=== PATIENT | female | born 1990 | race Caucasian/White ===

== ENCOUNTER → 2019-10-03 | Outpatient (CLI) | payer BC | LOC: WSo 11:42 | PROVIDERS: ATTEND Obstetrics & Gynecology | DX: Z31.82 Encounter for Rh incompatibility status (principal) | CPT/HCPCS: 96372 ==

== ENCOUNTER → 2019-11-20 | Outpatient (CLI) | payer BC ==
[2019-11-20 09:25] LABS: BASOPHILS % (AUTO) 0 % (0-10); EOSINOPHILS # (AUTO) 0.1 10^3/uL (0.0-0.3); EOSINOPHILS % (AUTO) 1 % (0-10); HEMATOCRIT 31 % (35-52); HEMOGLOBIN 10.4 G/DL (11.5-16.0); LYMPHOCYTES # (AUTO) 3.2 X 10^3 (1.0-4.0); LYMPHOCYTES % (AUTO) 23 % (12-44); MEAN CORPUSCULAR HEMOGLOBIN 29 PG (25-34); MEAN CORPUSCULAR HGB CONC 33 G/DL (32-36); MEAN CORPUSCULAR VOLUME 88 FL (80-99); MEAN PLATELET VOLUME 10.2 FL (7.4-10.4); MONOCYTES # (AUTO) 1.4 X 10^3 (0.0-1.0); MONOCYTES % (AUTO) 10 % (0-12); NEUTROPHILS # (AUTO) 9.2 X 10^3 (1.8-7.8); NEUTROPHILS % (AUTO) 66 % (42-75); PLATELET COUNT 363 10^3/uL (130-400); RED CELL DISTRIBUTION WIDTH 14.2 % (10.0-14.5); WHITE BLOOD COUNT 13.8 10^3/uL (4.3-11.0)
[2019-11-20 09:42] LABS: ALBUMIN 3.3 GM/DL (3.2-4.5); CHLORIDE 108 MMOL/L (98-107); POTASSIUM 3.9 MMOL/L (3.6-5.0); SODIUM 137 MMOL/L (135-145)
[2019-11-20 09:43] LABS: CALCIUM 8.4 MG/DL (8.5-10.1)
[2019-11-20 09:44] LABS: GLUCOSE 76 MG/DL (70-105)
[2019-11-20 09:45] LABS: CARBON DIOXIDE 20 MMOL/L (21-32)
[2019-11-20 09:46] LABS: BILIRUBIN,TOTAL 0.3 MG/DL (0.1-1.0)
[2019-11-20 09:48] LABS: ALKALINE PHOSPHATASE 124 U/L (40-136); CREATININE SERUM 0.67 MG/DL (0.60-1.30); GFR ESTIMATED > 60
[2019-11-20 09:49] LABS: BUN/CREATININE RATIO 13
[2019-11-20 09:51] LABS: ALANINE AMINOTRANSFERASE 11 U/L (0-55)
== END ==
LOC: LABNPT 09:14
PROVIDERS: ATTEND Obstetrics & Gynecology
DX: Z01.89 Encounter for other specified special examinations (principal)
CPT/HCPCS: 80053; 82570; 83615; 84156; 84550; 85025

== ENCOUNTER 2019-12-04 11:19 | Inpatient (IN) | payer BC ==
[2019-12-04] VITALS (38 sets, daily range): BP systolic 125–169; BP diastolic 59–104
[~2019-12-04] VITALS: Ht 162 cm; Wt 91.4 kg
--- NOTE | 2019-12-04 11:15 | NUR ---
LEE CHÁVEZ presented to unit via ambulatory from ED, accompanied by for induction of labor for induced hypertension.. LEE CHÁVEZ weighed, gowned, voided, and to bed. EFHM and TOCO applied, VS taken. LEE CHÁVEZ oriented to bed controls, call light, TV, heat, and A/C controls.
[2019-12-04] MEDS ORDERED: OXYTOCIN PRE-MIX DRIP 500 ML IV SCH (11:43)
--- NOTE | 2019-12-04 11:51 | History & Physical ---
History and Physical Date Seen by Provider: Dec 04, 2019 Time Seen by Provider: 11:49 This patient is a 29-year-old 1 white female seen in my clinic on the 150s over 102. She is gained 6 pounds last 2 weeks. She then was closely throughout her for elevated blood pressures. She is admitted now with PIH and GBS cultures negative. Patient. Allergies are none Medications are vitamins Medical social and surgical histories are per the antepartum record HEENT exam is normal Neck is supple no lymphadenopathy no thyromegaly Abdomen is gravid soft nontender nondistended Extremities show no clubbing or cyanosis. There is no Homans sign. Pelvic exam shows a cervix closed and then approximately 50 percent. Vertex presentation was a -1-2 station Lab work is pending Assessment and plan term at 37 weeks gestation with severe PIH. Lab work is pending to evaluate for preeclampsia. Plan is for labor induction with anticipation for vaginal delivery. Patient does understand there is increased risk for likelihood for delivery with her elevated blood pressures. 37 weeks with severe PIH Allergies and Home Medications Allergies Coded Allergies: No Known Drug Allergies (Unverified , 12/04/19) Patient Home Medication List Home Medication List Reviewed: Yes RADHA NEWTON MD Dec 04, 2019 11:51
[2019-12-04] MEDS ORDERED: D5 LR IV SOLUTION 1,000 ML IV ONE (11:58)
[2019-12-04 12:15] LABS: BASOPHILS % (AUTO) 0 % (0-10); EOSINOPHILS % (AUTO) 0 % (0-10); HEMATOCRIT 29 % (35-52); HEMOGLOBIN 9.7 G/DL (11.5-16.0); LYMPHOCYTES # (AUTO) 1.8 X 10^3 (1.0-4.0); LYMPHOCYTES % (AUTO) 16 % (12-44); MEAN CORPUSCULAR HEMOGLOBIN 29 PG (25-34); MEAN CORPUSCULAR HGB CONC 33 G/DL (32-36); MEAN CORPUSCULAR VOLUME 87 FL (80-99); MEAN PLATELET VOLUME 10.3 FL (7.4-10.4); MONOCYTES % (AUTO) 9 % (0-12); NEUTROPHILS # (AUTO) 8.6 X 10^3 (1.8-7.8); NEUTROPHILS % (AUTO) 75 % (42-75); PLATELET COUNT 341 10^3/uL (130-400); WHITE BLOOD COUNT 11.5 10^3/uL (4.3-11.0)
[2019-12-04 12:36] LABS: URINE CREATININE FOR RATIO 25 MG/DL (30-125); URINE PROTEIN FOR RATIO ONLY < 6 MG/DL (6-12)
[2019-12-04] MEDS: D5 LR IV SOLUTION 1,000 ML IV SCH (12:37)
[2019-12-04 12:38] LABS: ALANINE AMINOTRANSFERASE 13 U/L (0-55); ALBUMIN 3.2 GM/DL (3.2-4.5); ALKALINE PHOSPHATASE 137 U/L (40-136); BILIRUBIN,TOTAL 0.3 MG/DL (0.1-1.0); BUN/CREATININE RATIO 10; CALCIUM 8.8 MG/DL (8.5-10.1); CARBON DIOXIDE 20 MMOL/L (21-32); CHLORIDE 109 MMOL/L (98-107); CREATININE SERUM 0.63 MG/DL (0.60-1.30); GFR ESTIMATED > 60; GLUCOSE 77 MG/DL (70-105); SODIUM 137 MMOL/L (135-145); TOTAL PROTEIN 6.3 GM/DL (6.4-8.2); URIC ACID 3.8 MG/DL (2.6-7.2)
--- OUTSIDE RECORDS SUMMARY | 2019-12-04 13:01 | XMS REPORT | Continuity of Care Document ---
Author Organization Unknown Address Unknown Phone Unavailable Allergies There is no data. Medications There is no data. Problems Date Dx Coded Attending Type Code Diagnosis Diagnosed By 10/04/2019 RADHA NEWTON MD, Ot Z31.82 ENCOUNTER FOR RH INCOMPATIBILITY STATUS 10/06/2019 RADHA NEWTON MD, Ot Z31.82 ENCOUNTER FOR RH INCOMPATIBILITY STATUS 10/06/2019 RADHA NEWTON MD, Ot Z31.82 ENCOUNTER FOR RH INCOMPATIBILITY STATUS 10/06/2019 RADHA NEWTON MD, Ot Z31.82 ENCOUNTER FOR RH INCOMPATIBILITY STATUS 10/19/2019 RADHA NEWTON MD, Ot Z31.82 ENCOUNTER FOR RH INCOMPATIBILITY STATUS 11/23/2019 RADHA NEWTON MD, Ot Z01.89 ENCOUNTER FOR OTHER SPECIFIED SPECIAL EX 11/27/2019 RADHA NEWTON MD, Ot Z01.89 ENCOUNTER FOR OTHER SPECIFIED SPECIAL EX Procedures There is no data. Results Test Result Range RH IMMUNE GLOBULIN RHOPHYLAC - 10/03/19 12:19 RH IMMUNE GLOBULIN RHOPHYLAC PRSMD TRFSD 10/03/19 1236 NRG Rh immune globulin screen - 10/03/19 12: 19 Rh immune globulin screen 1 300ug NRG Rh immune globulin screen 05/01/21 NRG Lot number - 10/03/19 12:19 Lot number [id number] Complete blood count (CBC) with automate d white blood cell (WBC) differential - 11/20/19 09:00 Blood leukocytes automated count (number/volume) 13.8 10*3/uL 4.3-11.0 Blood erythrocytes automated count (number/volume) 3.56 10*6/uL 4.35-5.85 Venous blood hemoglobin measurement (mass/volume) 10.4 g/dL 11.5-16.0 Blood hematocrit (volume fraction) 31 % 35-52 Automated erythrocyte mean corpuscular volume 88 [ foz_us] 80-99 Automated erythrocyte mean corpuscular h emoglobin (mass per erythrocyte) 29 pg 25-34 Automated erythrocyte mean corpuscular h emoglobin concentration measurement (mass/volume) 33 g/dL 32-36 Automated erythrocyte distribution width ratio 14. 2 % 10.0- 14.5 Automated blood platelet count (count/volume) 363 10*3/uL 130-400 Automated blood platelet mean volume measurement 10.2 [foz_us] 7.4-10.4 Automated blood neutrophils/100 leukocytes 66 % 42-75 Automated blood lymphocytes/100 leukocytes 23 % 12-44 Blood monocytes/100 leukocytes 10 % 0-12 Automated blood eosinophils/100 leukocytes 1 % 0-10 Automated blood basophils/100 leukocytes 0 % 0-10 Blood neutrophils automated count (number/volume) 9.2 10*3 1.8-7.8 Blood lymphocytes automated count (number/volume) 3.2 10*3 1.0-4.0 Blood monocytes automated count (number/volume) 1. 4 10*3 0.0-1.0 Automated eosinophil count 0.1 10*3/uL 0 .0-0.3 Automated blood basophil count (count/volume) 0.0 10*3/uL 0.0-0.1 Comprehensive metabolic panel - 11/20/19 09:00 Serum or plasma sodium measurement (moles/volume) 137 mmol/L 135-145 Serum or plasma potassium measurement (moles/volume) 3.9 mmol/L 3.6-5.0 Serum or plasma chloride measurement (moles/volume) 108 mmol/L 98-107 Carbon dioxide 20 mmol/L 21-32 Serum or plasma anion gap determination (moles/volume) 9 mmol/L 5-14 Serum or plasma urea nitrogen measurement (mass/volume ) 9 mg/dL 7-18 Serum or plasma creatinine measurement (mass/volume) 0.67 mg/dL 0.60-1.30 Serum or plasma urea nitrogen/creatinine mass ratio 13 NRG Serum or plasma creatinine measurement w ith calculation of estimated glomerular filtration rate > NRG Serum or plasma glucose measurement (mass/volume) 76 mg/dL 70-105 Serum or plasma calcium measurement (mass/volume) 8.4 mg/dL 8.5-10.1 Serum or plasma total bilirubin measurement (mass/volu me) 0.3 mg/dL 0.1-1.0 Serum or plasma alkaline phosphatase leon surement (enzymatic activity/volume) 124 U/L 40-136 Serum or plasma aspartate aminotransfera se measurement (enzymatic activity/volume) 14 U/L 5-34 Serum or plasma alanine aminotransferase measurement (enzymatic activity/volume) 11 U/L 0-55 Serum or plasma protein measurement (mass/volume) 6.0 g/dL 6.4-8.2 Serum or plasma albumin measurement (mass/volume) 3.3 g/dL 3.2-4.5 CALCIUM CORRECTED 9.0 mg/dL 8.5-10.1 Urine protein/creatinine mass ratio - 09:00 Urine protein measurement (mass/volume) 13 mg/dL 6-12 Urine creatinine measurement (mass/volume) 163 mg/ dL 30-125 Urine protein/creatinine mass ratio 0.08 NRG Serum or plasma uric acid measurement (m ass/volume) - 11/20/19 09:00 Serum or plasma uric acid measurement (mass/volume) 4.0 mg/dL 2.6-7.2 Serum ragweed IgE antibody assay - 11/19 09:00 Serum ragweed IgE antibody assay 188 U/L 125-220 Urine protein/creatinine mass ratio - 11:30 Urine protein measurement (mass/volume) < mg/dL 6-12 Urine creatinine measurement (mass/volume) 25 mg/d L 30-125 Urine protein/creatinine mass ratio TNP NRG Complete blood count (CBC) with automate d white blood cell (WBC) differential - 12/04/19 12:10 Blood leukocytes automated count (number/volume) 11.5 10*3/uL 4.3-11.0 Blood erythrocytes automated count (number/volume) 3.34 10*6/uL 4.35-5.85 Venous blood hemoglobin measurement (mass/volume) 9.7 g/dL 11.5-16.0 Blood hematocrit (volume fraction) 29 % 35-52 Automated erythrocyte mean corpuscular volume 87 [ foz_us] 80-99 Automated erythrocyte mean corpuscular h emoglobin (mass per erythrocyte) 29 pg 25-34 Automated erythrocyte mean corpuscular h emoglobin concentration measurement (mass/volume) 33 g/dL 32-36 Automated erythrocyte distribution width ratio 14. 0 % 10.0- 14.5 Automated blood platelet count (count/volume) 341 10*3/uL 130-400 Automated blood platelet mean volume measurement 10.3 [foz_us] 7.4-10.4 Automated blood neutrophils/100 leukocytes 75 % 42-75 Automated blood lymphocytes/100 leukocytes 16 % 12-44 Blood monocytes/100 leukocytes 9 % 0-12 Automated blood eosinophils/100 leukocytes 0 % 0-10 Automated blood basophils/100 leukocytes 0 % 0-10 Blood neutrophils automated count (number/volume) 8.6 10*3 1.8-7.8 Blood lymphocytes automated count (number/volume) 1.8 10*3 1.0-4.0 Blood monocytes automated count (number/volume) 1. 0 10*3 0.0-1.0 Automated eosinophil count 0.0 10*3/uL 0 .0-0.3 Automated blood basophil count (count/volume) 0.0 10*3/uL 0.0-0.1 Comprehensive metabolic panel - 12/04/19 12:10 Serum or plasma sodium measurement (moles/volume) 137 mmol/L 135-145 Serum or plasma potassium measurement (moles/volume) 4.0 mmol/L 3.6-5.0 Serum or plasma chloride measurement (moles/volume) 109 mmol/L 98-107 Carbon dioxide 20 mmol/L 21-32 Serum or plasma anion gap determination (moles/volume) 8 mmol/L 5-14 Serum or plasma urea nitrogen measurement (mass/volume ) 6 mg/dL 7-18 Serum or plasma creatinine measurement (mass/volume) 0.63 mg/dL 0.60-1.30 Serum or plasma urea nitrogen/creatinine mass ratio 10 NRG Serum or plasma creatinine measurement w ith calculation of estimated glomerular filtration rate > NRG Serum or plasma glucose measurement (mass/volume) 77 mg/dL 70-105 Serum or plasma calcium measurement (mass/volume) 8.8 mg/dL 8.5-10.1 Serum or plasma total bilirubin measurement (mass/volu me) 0.3 mg/dL 0.1-1.0 Serum or plasma alkaline phosphatase leon surement (enzymatic activity/volume) 137 U/L 40-136 Serum or plasma aspartate aminotransfera se measurement (enzymatic activity/volume) 20 U/L 5-34 Serum or plasma alanine aminotransferase measurement (enzymatic activity/volume) 13 U/L 0-55 Serum or plasma protein measurement (mass/volume) 6.3 g/dL 6.4-8.2 Serum or plasma albumin measurement (mass/volume) 3.2 g/dL 3.2-4.5 CALCIUM CORRECTED 9.4 mg/dL 8.5-10.1 Serum or plasma uric acid measurement (m ass/volume) - 12/04/19 12:10 Serum or plasma uric acid measurement (mass/volume) 3.8 mg/dL 2.6-7.2 Serum ragweed IgE antibody assay - 12/03 12:10 Serum ragweed IgE antibody assay 196 U/L 125-220 Blood type T Indirect antibody screen pa karrie - 12/04/19 12:10 WRISTBAND NUMBER [id number] NRG ABO+Rh group ON NRG Blood group antibody screen NEGATIVE NR G Encounters ACCT No. Visit Date/Time Discharge Status Pt. Type Provider Facility Loc./Unit Complaint [id number] 11/20/2019 09:14:00 020 23:59:59 CLS Outpatient RADHA NEWTON MD [facility] LABNPT [id number] 10/03/2019 11:42:00 020 23:59:59 CLS Outpatient RADHA NEWTON MD [facility] WSo RH NEG [id number] 12/04/2019 11:45:[address] Inpatient RADHA NEWTON MD [facility] LDRP
--- NOTE | 2019-12-04 19:57 | Progress Note ---
Standard Progress Note Progress Notes/Assess & Plan Date Seen by a Provider: Dec 04, 2019 Time Seen by a Provider: 19:56 Progress/Assessment & Plan Patient without complaint. She does indicate she is beginning to feel contractions but the discomfort is tolerable. Experienced spontaneous rupture membranes about 1700 today with clear fluid. Her blood pressures have been somewhat labile periodically being in the 160s over high 90s and 100s. Patient understands that if she repeats blood pressures in that range with likely would proceed with delivery. Plan at this point is to halt the Pitocin which is currently at 40 mU/m allow her to rest for 6 hours or so and then resumed Pitocin in hopes of more effective labor. Continue close attention to blood pressure and to status. RADHA NEWTON MD Dec 04, 2019 19:57
[2019-12-05] VITALS (51 sets, daily range): BP systolic 108–158; BP diastolic 54–89
[2019-12-05] MEDS: D5 LR IV SOLUTION 1,000 ML IV SCH ×2 (01:21→09:08)
[2019-12-05] MEDS ORDERED: fentaNYL 2 mcg/ml BUPIVA 0.125 100 ML ONE (05:33)
[2019-12-05] MEDS ORDERED: BUPIVACAINE 0.25% 30 ML (SENSORCAINE) VIAL ONE (06:25)
[2019-12-05] MEDS ORDERED: fentaNYL INJECTION 100 MCG/2 ML AMP ONE (06:25)
[2019-12-05] MEDS ORDERED: LACTATED RINGERS 1,000 ML IV ONE (06:58)
[2019-12-05] MEDS ORDERED: fentaNYL 2 mcg/ml BUPIVA 0.125 100 ML IV SCH (06:58)
[2019-12-05] MEDS ORDERED: CATHETER FLUSH 10 ML SYR IV PRN (07:00)
[2019-12-05] MEDS ORDERED: NALOXONE 0.4 MG/ML 1 ML (NARCAN) VIAL IV PRN (07:00)
[2019-12-05] MEDS ORDERED: EPIDURAL (fentaNYL 2 MCG/ML BUPIVA 0.125%)100 ML BAG EPI SCH (07:00)
[2019-12-05] MEDS ORDERED: MINERAL OIL CONCENTRATE 99.9% 15 ML UDC ONE (08:46)
[2019-12-05] MEDS ORDERED: LIDOCAINE/EPI 2% 1:200,00 (XYLOCAINE) 10 ML VIAL ONE (08:46)
[2019-12-05] MEDS ORDERED: OXYTOCIN PRE-MIX DRIP 500 ML IV SCH (10:22)
[2019-12-05] MEDS ORDERED: MEASLES,MUMPS,RUBELLA 1 EA INJ SC ONE (10:30)
[2019-12-05] MEDS ORDERED: oxyCODONE/APAP 5/325MG (PERCOCET 5) TABLET PO PRN (10:30)
[2019-12-05] MEDS ORDERED: BENZOCAINE/MENTHOL (DERMOPLAST) 60 ML CAN TP PRN (10:30)
[2019-12-05] MEDS ORDERED: TETANUS,DIPTH,PERTUSS P/F (BOOSTRIX) 0.5 ML VIAL IM ONE (10:30)
[2019-12-05] MEDS ORDERED: ONDANSETRON 4 MG/2 ML (SDV) Z0FRAN IVP PRN (10:30)
[2019-12-05] MEDS: KETOROLAC 30 MG/ML VIAL IVP SCH ×2 (10:37→15:55)
--- NOTE | 2019-12-05 11:42 | Discharge Inst-Surgical ---
Discharge Inst-Surgical Depart Medication/Instructions New, Converted or Re-Newed RX: RX on Chart Consults/Follow Up Patient Instructions: As directed Orders & Referrals Follow Up Appt: Call to make follow up appt. for patient in 4 weeks. Activity Per routine post vaginal delivery instructions. Please call in RX to patient pharmacy. Diet as tolerated Patient may shower or tub bathe as desired. Activity Activity as Tolerated: No Diet Discharge Diet: No Restrictions RADHA NEWTON MD Dec 05, 2019 11:41
[2019-12-05] MEDS ORDERED: IBUP-1780 PO (11:43)
[2019-12-05] MEDS ORDERED: OXYC1TAB87 PO (11:43)
[2019-12-05] MEDS ORDERED: DCS100C PO (11:43)
--- NOTE | 2019-12-05 14:52 | OPERATIVE REPORT ---
DATE OF SERVICE: 12/05/2019 DELIVERY NOTE The patient delivered by term spontaneous vaginal delivery a viable female infant with Apgars of 8 and 8 at 1 and 5 minutes respectively, weight of 5 pounds 15 ounces. time of 0917 and a cord blood pH of 7.17. The had a double nuchal cord that was easily released after delivery of the head. The was bulb suctioned on delivery of the head and again on completion of delivery. The umbilical cord when pulseless was doubly clamped, the father cut the cord, the baby was passed to mom's abdomen. Cord bloods were obtained. The placenta delivered spontaneously Hester. It was normal with a 3-vessel cord. It was sent to pathology for permanent section due to the patient's history of PIH. The cervix, vagina, rectum, and perineum were examined and found to be intact, except for a first-degree right periurethral laceration and a second-degree peroneal and posterior fourchette laceration, both of those were repaired with a single suture of 3-0 Vicryl Rapide in the usual manner without difficulty to good hemostasis and good reapproximation. Sponge and needle counts were correct on completion of the delivery and the repair. Estimated blood loss was around 100 to 150 mL. The patient tolerated the delivery and the repair well and remained in the LDR. The baby remained with the mom. Job ID: [id number] DocumentID: [id number] Dictated Date: 12/05/2019 11:35:03 Design Engineering Specialist Date: 12/05/2019 14:51:30 Dictated By: RADHA NEWTON MD
--- NOTE | 2019-12-05 16:06 | NUR ---
REFER TO LABOR FLOW SHEET.
--- NOTE | 2019-12-05 19:20 | NUR ---
PT RESTING WITH S/O AND INFANT AT THE BEDSIDE. OPERATIONS INTERN RN, SEPTEMBER, ALSO TO PT'S BEDSIDE FOR INTRODUCTION AND POC. NO NEEDS VOICED. CALL LIGHT WITHIN REACH.
--- NOTE | 2019-12-05 19:20 | NUR ---
bedside shift report and handover received. pt resting. pt denies any pain or needs at this time.
--- NOTE | 2019-12-05 19:20 | NUR ---
to bedside for report and handover. pt resting and denies any pain or needs at this time.
[2019-12-05] MEDS: DOCUSATE SODIUM 100 MG (COLACE) CAP PO SCH (20:40)
--- NOTE | 2019-12-05 20:40 | NUR ---
MOTRIN AND COLACE ADMINISTERED PER ORDERS. PT DENIES ANY FURTHER NEEDS AT THIS TIME.
[2019-12-05] MEDS ORDERED: IBUPROFEN 800 MG (MOTRIN) TAB PO ONE (21:36)
--- NOTE | 2019-12-05 22:30 | NUR ---
motrin and colace adminitered after pt wakes. pt denies any needs.
--- NOTE | 2019-12-05 22:58 | NUR ---
PT REPORTS TRYING TO GET LATCHED ON WITHOUT SUCCESS. STATES IS VERY SLEEPY. PT GOING TO FINGER FEED FORMULA AT THIS TIME. PT DENIES ANY PAIN OR NEEDS AT THIS TIME.
[2019-12-06 00:10] VITALS: BP 138/78
--- NOTE | 2019-12-06 01:10 | NUR ---
pt cont to do well with no c/o's. vss. reports lochia light, emptying bladder without trouble and no headache. reports no pain.
[2019-12-06] MEDS ORDERED: IBUPROFEN 800 MG (MOTRIN) TAB PO ONE ×2 (04:13→08:53)
[2019-12-06 05:30] VITALS: BP 136/79
--- NOTE | 2019-12-06 05:30 | NUR ---
pt sitting up in bed . vss. pt denies any pain, needs or c/o's.
--- NOTE | 2019-12-06 07:40 | Progress Note ---
Standard Progress Note Progress Notes/Assess & Plan Date Seen by a Provider: Dec 06, 2019 Time Seen by a Provider: 07:39 Progress/Assessment & Plan Patient without complaint. She does indicate she is beginning to feel contractions but the discomfort is tolerable. Experienced spontaneous rupture membranes about 1700 today with clear fluid. Her blood pressures have been somewhat labile periodically being in the 160s over high 90s and 100s. Patient understands that if she repeats blood pressures in that range with likely would proceed with delivery. Plan at this point is to halt the Pitocin which is currently at 40 mU/m allow her to rest for 6 hours or so and then resumed Pitocin in hopes of more effective labor. Continue close attention to blood pressure and to status. December 06, 2019 Patient is without complaint. She is ambulating, voiding, tolerating oral intake well has good pain control. Vital Signs Date Time Temp Pulse Resp B/P (MAP) Pulse Ox O2 Delivery O2 Flow Rate FiO2 12/06/19 05:30 36.0 84 18 136/79 (98) 98 Room Air 12/06/19 00:10 36.4 72 18 138/78 (98) 98 Room Air 12/05/19 20:05 36.3 67 18 140/89 (106) Room Air 12/05/19 15:52 36.0 68 18 137/68 (91) Room Air 12/05/19 13:47 35.9 75 18 123/74 (90) Room Air 12/05/19 11:36 36.2 12/05/19 11:24 87 18 128/67 (87) Room Air 12/05/19 11:09 67 18 139/81 (100) Room Air 12/05/19 10:54 85 18 136/67 (90) Room Air 12/05/19 10:39 82 18 129/61 (83) Room Air 12/05/19 10:24 36.7 96 18 131/60 (83) Room Air 12/05/19 10:09 36.4 97 18 121/67 (85) Room Air 12/05/19 09:54 100 18 130/65 (86) Room Air 12/05/19 09:51 36.5 12/05/19 09:39 100 18 133/71 (91) Room Air 12/05/19 09:24 107 18 108/54 (72) Room Air 12/05/19 09:11 133 18 138/65 (89) Room Air 12/05/19 09:05 36.2 12/05/19 08:44 36.4 12/05/19 08:40 84 18 134/77 (96) 97 Room Air 12/05/19 08:25 96 18 140/78 (98) 100 Room Air 12/05/19 08:10 75 18 140/80 (100) 100 Room Air 12/05/19 07:54 63 18 131/75 (93) 100 Room Air 12/05/19 07:40 70 18 125/66 (85) 100 Room Air I & O 12/06/19 07:00 Intake Total 1500 ml Balance 1500 ml Vital signs are stable. Patient is afebrile. Blood pressures are normalizing. Abdomen is benign. Fundus is firm below the umbilicus and nontender. Extremities show no clubbing cyanosis. There is no Homans sign. Assessment and plan day number 1 status post term spontaneous vaginal delivery at 37 weeks gestation. Plan is for routine convalescence care today and likely discharge home tomorrow Final Diagnosis 37 week spontaneous vaginal delivery RADHA NEWTON MD Dec 06, 2019 07:40
[2019-12-06 08:00] VITALS: BP 137/72
--- NOTE | 2019-12-06 08:00 | NUR ---
A.M. ASSESSMENT COMPLETED. VSS. CARING FOR IN ROOM. GOOD INTERACTION NOTED.
--- NOTE | 2019-12-06 09:00 | NUR ---
DR. NEWTON HERE TO SEE PT.
[2019-12-06] MEDS: DOCUSATE SODIUM 100 MG (COLACE) CAP PO SCH (09:45)
[2019-12-06] MEDS ORDERED: WITCH HAZEL(TUCKS) 40 EA JAR ONE (09:48)
[2019-12-06] MEDS ORDERED: DIBUCAINE (NUPERCAINAL) 1% OINT 30 GM ONE (09:48)
[2019-12-06] MEDS ORDERED: DIBUCAINE (NUPERCAINAL) 1% OINT 30 GM TOP PRN (10:00)
[2019-12-06] MEDS ORDERED: IBUPROFEN 800 MG (MOTRIN) TAB PO SCH (10:00)
[2019-12-06] MEDS ORDERED: WITCH HAZEL(TUCKS) 40 EA JAR TOP PRN (10:00)
--- NOTE | 2019-12-06 10:00 | NUR ---
CARING FOR INFANT IN ROOM. ANXIOUS TO GO HOME TODAY.
--- NOTE | 2019-12-06 10:42 | Anesthesia-Regional Post-Op ---
Regional Patient Condition Mental Status: Alert, Oriented x3 Circulation: Same as Pre-Op Headache: Absent Sensation: Full Recovery Motor Block: Absent Post Op Complications Complications None Follow Up Care/Instructions Patient Instructions None needed. Anesthesia/Patient Condition Patient is doing well, no complaints, stable vital signs, no apparent adverse anesthesia problems. No complications reported per nursing. [place] [facility] [place]: No VANIA BAILEY CRNA Dec 06, 2019 10:42
--- NOTE | 2019-12-06 12:30 | NUR ---
PREPARING FOR DISCHARGE. OFFERS NO COMPLAINTS.
--- NOTE | 2019-12-06 13:00 | NUR ---
EATING STORK MEAL.
--- NOTE | 2019-12-06 13:11 | NUR ---
TDAP GIVEN IM IN LEFT DELTOID. SITE CLEAR.
--- NOTE | 2019-12-06 13:40 | NUR ---
DISCHARGE INSTRUCTIONS REVIEWED WITH COPY TO PT. STATES UNDERSTANDING OF ALL INSTRUCTIONS AND NEED TO F/U SCHEDULED AND NEEDED.
[2019-12-06 14:25] VITALS: BP 137/72
--- NOTE | 2019-12-06 14:25 | NUR ---
DISMISSED FROM [facility] VIA W/C WITH IN STABLE CONDITION TO FAMILY CAR ACC BY SPOUSE AND COLBY BONILLA RN.
[2019-12-10] MEDS ORDERED: IBUPROFEN 800 MG (MOTRIN) TAB PO SCH (10:30)
== END 2019-12-06 14:25 | disposition home or self-care (01) | DRG 807 ==
LOC: WSo 11:19 → LDRP 11:20 → WSo 11:45 → LDRP 12-05 16:06
PROVIDERS: ADMIT Obstetrics & Gynecology; ATTEND Obstetrics & Gynecology
PROC: 10E0XZZ Delivery of Products of Conception, External Approach (ICD-10-PCS; principal; 2019-12-05)
PROC: 0KQM0ZZ Repair Perineum Muscle, Open Approach (ICD-10-PCS; 2019-12-05)
PROC: 0UQMXZZ Repair Vulva, External Approach (ICD-10-PCS; 2019-12-05)
PROC: 3E033VJ Introduction of Other Hormone into Peripheral Vein, Percutaneous Approach (ICD-10-PCS; 2019-12-05)
DX: O13.4 Gestational [pregnancy-induced] hypertension without significant proteinuria, complicating childbirth (principal); Z37.0 Single live birth; O71.82 Other specified trauma to perineum and vulva; O70.1 Second degree perineal laceration during delivery; O69.81X0 Labor and delivery complicated by cord around neck, without compression, not applicable or unspecified; Z3A.37 37 weeks gestation of pregnancy
CPT/HCPCS: 36415; 80053; 82570; 83615; 84156; 84550; 85025; 86850; 86900; 86901; 90715

== ENCOUNTER → 2022-04-07 | Outpatient (CLI) | payer BC ==
[~2022-04-07] MED LIST: DOCU-239 PO; IBUP-1780 PO; OXYC1TAB87 PO
== END ==
LOC: LABNPT 11:00
DX: O13.9 Gestational [pregnancy-induced] hypertension without significant proteinuria, unspecified trimester (principal); Z3A.00 Weeks of gestation of pregnancy not specified
CPT/HCPCS: 82570; 84156

== ENCOUNTER → 2022-04-21 | Outpatient (CLI) | payer BC ==
[2022-04-21 09:59] LABS: URINE CREATININE FOR RATIO 42 MG/DL (30-125); URINE PROTEIN FOR RATIO ONLY < 6 MG/DL (6-12)
== END ==
LOC: LABNPT 09:22
PROVIDERS: ATTEND Obstetrics & Gynecology
DX: O14.93 Unspecified pre-eclampsia, third trimester (principal); Z3A.00 Weeks of gestation of pregnancy not specified
CPT/HCPCS: 82570; 84156

== ENCOUNTER → 2022-04-23 | Outpatient (CLI) | payer BC ==
[2022-04-23 12:13] LABS: URINE CREATININE FOR RATIO 32 MG/DL (30-125)
[2022-04-23 12:14] LABS: URINE PROTEIN FOR RATIO ONLY < 6 MG/DL (6-12)
== END ==
LOC: LABNPT 11:42
PROVIDERS: ATTEND Obstetrics & Gynecology
DX: O13.9 Gestational [pregnancy-induced] hypertension without significant proteinuria, unspecified trimester (principal); Z3A.00 Weeks of gestation of pregnancy not specified
CPT/HCPCS: 82570; 84156

== ENCOUNTER 2022-04-24 10:00 | Outpatient (RCR) | payer BC ==
[~2022-04-24 10:00] MED LIST changes: +BETAMETHASONE ACE/NA PHOS 6 MG/ML (CELESTONE SOLUSPAN) IM SCH; +BETAMETHASONE ACE/NA PHOS 6 MG/ML (CELESTONE SOLUSPAN) ONE
[2022-04-24] MEDS ORDERED: BETAMETHASONE ACE/NA PHOS 6 MG/ML (CELESTONE SOLUSPAN) IM SCH (10:15)
== END 2022-05-13 | disposition home or self-care (01) ==
LOC: WSo 10:00
PROVIDERS: ATTEND Obstetrics & Gynecology
DX: Z01.89 Encounter for other specified special examinations (principal)
CPT/HCPCS: 96372